=== PATIENT | female | born 1995 | race American Indian/Alaskan Native ===

== ENCOUNTER 2021-01-26 08:19 | Inpatient (IN) | payer OTHER ==
[~2021-01-26] VITALS: Ht 162.6 cm; Wt 71.7 kg
[2021-01-26] MEDS ORDERED: PRENATAL TABLE1 EAC1 PO (10:09)
== END 2021-01-30 11:13 | disposition home or self-care (01) | DRG 805 ==
LOC: OBS/DEL 08:19 → LDR 08:26 → OB/GYN 01-28 13:24
PROVIDERS: ADMIT Obstetrics & Gynecology; ATTEND Obstetrics & Gynecology
PROC: 4A1HXFZ Monitoring of Products of Conception, Cardiac Rhythm, External Approach (ICD-10-PCS; 2021-01-26)
PROC: BY4FZZZ Ultrasonography of Third Trimester, Single Fetus (ICD-10-PCS; 2021-01-26)
PROC: 10E0XZZ Delivery of Products of Conception, External Approach (ICD-10-PCS; principal; 2021-01-28)
PROC: 0UQG7ZZ Repair Vagina, Via Natural or Artificial Opening (ICD-10-PCS; 2021-01-28)
PROC: 0W8NXZZ Division of Female Perineum, External Approach (ICD-10-PCS; 2021-01-28)
DX: O42.113 Preterm premature rupture of membranes, onset of labor more than 24 hours following rupture, third trimester (principal); O60.14X0 Preterm labor third trimester with preterm delivery third trimester, not applicable or unspecified; Z37.0 Single live birth; O71.4 Obstetric high vaginal laceration alone; Z3A.31 31 weeks gestation of pregnancy; Z20.822 Contact with and (suspected) exposure to COVID-19

== ENCOUNTER → 2021-02-09 12:06 | Outpatient (CLI) | payer OTHER ==
[~2021-02-09 12:06] MED LIST: PRENATAL TABLE1 EAC1 PO
== END | disposition home or self-care (01) ==
LOC: LAB 12:06
PROVIDERS: ATTEND Pediatrics Neonatal-Perinatal Medicine
DX: R06.02 Shortness of breath (principal); R05 Cough; Z03.818 Encounter for observation for suspected exposure to other biological agents ruled out

== ENCOUNTER 2021-02-13 12:19 | Outpatient (CLI) | payer OTHER | END 2021-02-13 12:20 | disposition home or self-care (01) | LOC: LAB 12:19 | PROVIDERS: ATTEND Pediatrics Neonatal-Perinatal Medicine | DX: Z03.818 Encounter for observation for suspected exposure to other biological agents ruled out (principal) ==

== ENCOUNTER 2021-02-17 11:48 | Outpatient (CLI) | payer OTHER | END 2021-02-17 11:52 | disposition home or self-care (01) | LOC: LAB 11:48 | DX: Z03.818 Encounter for observation for suspected exposure to other biological agents ruled out (principal) ==